=== PATIENT | female | born 1990 | race Hispanic/Latino ===

== ENCOUNTER 2023-08-28 13:51 | Emergency (ER) | payer OTHER ==
[~2023-08-28] VITALS: Ht 157.5 cm; Wt 48.1 kg
[2023-08-28 13:57] VITALS: BP 114/73; PULSE 91; RESP 18
[2023-08-28] MEDS ORDERED: IBUPROFEN 200 MG TAB PO ONE (14:30)
== END 2023-08-28 16:00 | disposition home or self-care (01) ==
LOC: EDH 13:51
DX: S60.212A Contusion of left wrist, initial encounter (principal); S60.221A Contusion of right hand, initial encounter; S20.212A Contusion of left front wall of thorax, initial encounter; Z98.890 Other specified postprocedural states; Y08.89XA Assault by other specified means, initial encounter; Y93.89 Activity, other specified; Y92.89 Other specified places as the place of occurrence of the external cause; Y99.8 Other external cause status
CPT/HCPCS: 71101; 73110